=== PATIENT | male | born 1950 | race African-American/Black ===

== ENCOUNTER 2017-01-18 15:45 | Inpatient (IN) | payer MEDICAID ==
[~2017-01-18 15:45] MED LIST: ALDACTONE25 M1 PO; ASPIRIN EC81 MG PO; COREG25 M1 PO; DEMADEX20 M1 PO; LASIX40 MG PO; LIPITOR40 M1 PO; POTASSIUM CHLO20 ME3 PO; ULTRAM50 M1 PO; ZESTRIL10 M1 PO; ZESTRIL10 M3 PO
[2017-01-18] MEDS ORDERED: GAS RELIEF125 M5 PO (16:18)
[2017-01-18 16:27] LABS: BASO % 0.4 % (0-2); EOS % 1.3 % (0-7); EOSINOPHIL ABSOLUTE COUNT 0.1 tho/cmm (0.0-0.7); HCT-HEMATOCRIT 41.5 % (36.0-53.5); HGB-HEMOGLOBIN 14.1 gm/dl (13.5-17.0); IMMATURE GRANULOCYTES ABSOLUTE 0.01 tho/cmm (0-0.03); IMMATURE GRANULOCYTES PERCENT 0.2 % (0-0.3); LYMPH % 25.8 % (20-45); LYMPH ABSOLUTE COUNT 1.2 tho/cmm (0.8-4.5); MCH (MEAN CORPUSCULAR HGB) 29.8 pg (28.0-32.0); MCV (MEAN CELL VOLUME) 87.7 fl (82.0-96.0); MEAN PLATELET VOLUME 11.3 cmc (9.4-12.4); MONO % 11.5 % (0-12); MONOCYTE ABSOLUTE COUNT 0.6 tho/cmm (0.0-1.2); NEUTROPHIL ABSOLUTE COUNT 2.9 tho/cmm (1.6-8.0); NEUTROPHIL-AUTOMATED 2.9 tho/cmm (1.6-8.0); NEUTROPHILS % 60.8 % (40-80); PLATELET COUNT 159 tho/cmm (150-450); RED BLOOD COUNT 4.73 mil/cmm (4.40-5.70); RED CELL DISTRIBUTION WIDTH 14.1 % (12.4-16.4); WHITE BLOOD COUNT 4.8 tho/cmm (4.0-10.0)
[2017-01-18 16:55] LABS: ALB/GLOB RATIO 0.8 (0.8-2.0); ALBUMIN 3.5 g/dl (3.5-5.0); ALKALINE PHOSPHATASE 130 U/L (33-138); ALT/SGPT 36 U/L (12-78); ANION GAP 11 mmol/L (0-20); AST/SGOT 25 U/L (10-40); BILIRUBIN,TOTAL 0.5 mg/dl (0.0-1.5); BLOOD UREA NITROGEN 10 mg/dl (6-24); C-REACTIVE PROTEIN 3.2 mg/dl (0-0.9); CALCIUM 9.3 mg/dl (8.5-10.5); CARBON DIOXIDE-VENOUS 31 mmol/L (22-32); CHLORIDE 101 mmol/l (96-110); CREATININE 0.88 mg/dl (0.60-1.30); GLUCOSE 105 mg/dL (70-110); LIPASE 475 U/L (73-393); POTASSIUM 4.8 mmol/L (3.7-5.1); SODIUM 138 mmol/L (135-145); eGFR VALUE FOR BLACK >90 mL/Min
[2017-01-18 18:46] LABS: MAGNESIUM 1.8 mg/dl (1.3-2.6)
[2017-01-19 06:01] LABS: ANION GAP 12 mmol/L (0-20); BLOOD UREA NITROGEN 11 mg/dl (6-24); CALCIUM 9.2 mg/dl (8.5-10.5); CARBON DIOXIDE-VENOUS 30 mmol/L (22-32); CHLORIDE 100 mmol/l (96-110); CREATININE 0.91 mg/dl (0.60-1.30); GLUCOSE 97 mg/dL (70-110); SODIUM 138 mmol/L (135-145); eGFR VALUE FOR BLACK >90 mL/Min
[2017-01-19 06:04] LABS: POTASSIUM 3.8 mmol/L (3.7-5.1)
[2017-01-19 11:47] LABS: URINE BILIRUBIN NEGATIVE (NEG); URINE BLOOD NEGATIVE (NEG); URINE GLUCOSE (UA) NEGATIVE (NEG); URINE KETONE NEGATIVE (NEG); URINE LEUKOCYTE ESTERASE NEGATIVE (NEG); URINE NITRITE NEGATIVE (NEG); URINE PROTEIN NEGATIVE (NEG); URINE SPECIFIC GRAVITY 1.005 (1.003-1.030)
[2017-01-19 11:48] LABS: URINE APPEARANCE CLEAR; URINE COLOR PALE YELLOW
[2017-01-20 07:31] LABS: ALB/GLOB RATIO 0.8 (0.8-2.0); ALBUMIN 3.5 g/dl (3.5-5.0); ALKALINE PHOSPHATASE 125 U/L (33-138); ALT/SGPT 34 U/L (12-78); AMYLASE 47 U/L (20-90); ANION GAP 10 mmol/L (0-20); AST/SGOT 26 U/L (10-40); BILIRUBIN,TOTAL 0.5 mg/dl (0.0-1.5); BLOOD UREA NITROGEN 10 mg/dl (6-24); CALCIUM 8.9 mg/dl (8.5-10.5); CARBON DIOXIDE-VENOUS 33 mmol/L (22-32); CHLORIDE 99 mmol/l (96-110); CREATININE 0.88 mg/dl (0.60-1.30); GLUCOSE 105 mg/dL (70-110); LIPASE 388 U/L (73-393); POTASSIUM 3.7 mmol/L (3.7-5.1); SODIUM 138 mmol/L (135-145); eGFR VALUE FOR BLACK >90 mL/Min
[2017-01-20 07:45] LABS: BASO % 0.4 % (0-2); EOS % 0.7 % (0-7); HCT-HEMATOCRIT 41.2 % (36.0-53.5); IMMATURE GRANULOCYTES ABSOLUTE 0.01 tho/cmm (0-0.03); IMMATURE GRANULOCYTES PERCENT 0.2 % (0-0.3); LYMPH % 22.5 % (20-45); MCH (MEAN CORPUSCULAR HGB) 29.5 pg (28.0-32.0); MCV (MEAN CELL VOLUME) 86.7 fl (82.0-96.0); MEAN PLATELET VOLUME 11.9 cmc (9.4-12.4); MONO % 13.6 % (0-12); MONOCYTE ABSOLUTE COUNT 0.6 tho/cmm (0.0-1.2); NEUTROPHIL ABSOLUTE COUNT 2.8 tho/cmm (1.6-8.0); NEUTROPHIL-AUTOMATED 2.8 tho/cmm (1.6-8.0); NEUTROPHILS % 62.6 % (40-80); PLATELET COUNT 155 tho/cmm (150-450); RED BLOOD COUNT 4.75 mil/cmm (4.40-5.70); RED CELL DISTRIBUTION WIDTH 14.2 % (12.4-16.4); WHITE BLOOD COUNT 4.5 tho/cmm (4.0-10.0)
[2017-01-21 04:50] LABS: INR 1.2 INR (0.9-1.1); PROTHROMBIN TIME 14.6 SECONDS (9.0-13.6)
[2017-01-21 04:52] LABS: BASO % 0.1 % (0-2); EOS % 0.9 % (0-7); EOSINOPHIL ABSOLUTE COUNT 0.1 tho/cmm (0.0-0.7); HCT-HEMATOCRIT 42.5 % (36.0-53.5); HGB-HEMOGLOBIN 14.3 gm/dl (13.5-17.0); IMMATURE GRANULOCYTES ABSOLUTE 0.01 tho/cmm (0-0.03); IMMATURE GRANULOCYTES PERCENT 0.1 % (0-0.3); LYMPH % 16.1 % (20-45); LYMPH ABSOLUTE COUNT 1.1 tho/cmm (0.8-4.5); MCH (MEAN CORPUSCULAR HGB) 29.4 pg (28.0-32.0); MCHC MEAN CORPUSCULAR HGB CONC 33.6 % (32.0-36.0); MCV (MEAN CELL VOLUME) 87.3 fl (82.0-96.0); MEAN PLATELET VOLUME 12.2 cmc (9.4-12.4); MONO % 12.9 % (0-12); MONOCYTE ABSOLUTE COUNT 0.9 tho/cmm (0.0-1.2); NEUTROPHIL ABSOLUTE COUNT 4.8 tho/cmm (1.6-8.0); NEUTROPHIL-AUTOMATED 4.8 tho/cmm (1.6-8.0); NEUTROPHILS % 69.9 % (40-80); PLATELET COUNT 161 tho/cmm (150-450); RED BLOOD COUNT 4.87 mil/cmm (4.40-5.70); RED CELL DISTRIBUTION WIDTH 14.3 % (12.4-16.4)
[2017-01-21 05:11] LABS: WHITE BLOOD COUNT 6.8 tho/cmm (4.0-10.0)
[2017-01-21 05:26] LABS: ANION GAP 12 mmol/L (0-20); BLOOD UREA NITROGEN 11 mg/dl (6-24); CARBON DIOXIDE-VENOUS 28 mmol/L (22-32); CHLORIDE 104 mmol/l (96-110); CREATININE 0.96 mg/dl (0.60-1.30); GLUCOSE 111 mg/dL (70-110); POTASSIUM 4.6 mmol/L (3.7-5.1); SODIUM 139 mmol/L (135-145); eGFR VALUE FOR BLACK >90 mL/Min
[2017-01-21 05:34] LABS: MAGNESIUM 1.8 mg/dl (1.3-2.6)
[2017-01-22 03:50] LABS: ANION GAP 10 mmol/L (0-20); BLOOD UREA NITROGEN 16 mg/dl (6-24); CALCIUM 9.1 mg/dl (8.5-10.5); CARBON DIOXIDE-VENOUS 31 mmol/L (22-32); CHLORIDE 99 mmol/l (96-110); CREATININE 0.98 mg/dl (0.60-1.30); GLUCOSE 124 mg/dL (70-110); POTASSIUM 4.3 mmol/L (3.7-5.1); SODIUM 136 mmol/L (135-145); eGFR VALUE FOR BLACK >90 mL/Min
[2017-01-23 06:01] LABS: ANION GAP 11 mmol/L (0-20); BLOOD UREA NITROGEN 14 mg/dl (6-24); CALCIUM 8.9 mg/dl (8.5-10.5); CARBON DIOXIDE-VENOUS 29 mmol/L (22-32); CHLORIDE 96 mmol/l (96-110); CREATININE 0.82 mg/dl (0.60-1.30); GLUCOSE 116 mg/dL (70-110); SODIUM 132 mmol/L (135-145); eGFR VALUE FOR BLACK >90 mL/Min
[2017-01-23 06:06] LABS: POTASSIUM 4.3 mmol/L (3.7-5.1)
[2017-01-23] MEDS ORDERED: FLOMAX0.4 M1 PO (11:08)
[2017-01-23] MEDS ORDERED: ULTRAM50 M1 PO (11:09)
== END 2017-01-23 12:55 | DRG 435 ==
LOC: EDMED 15:45 → EMR2 16:42 → PCUA 21:50
PROVIDERS: Emergency Medicine; Internal Medicine Interventional Cardiology; Internal Medicine Medical Oncology; Physician Assistant; Radiology Diagnostic Radiology; Registered Nurse; ADMIT Internal Medicine Cardiovascular Disease
PROC: 02HV33Z Insertion of Infusion Device into Superior Vena Cava, Percutaneous Approach (ICD-10-PCS; principal; 2017-01-20)
PROC: 0FB23ZX Excision of Left Lobe Liver, Percutaneous Approach, Diagnostic (ICD-10-PCS; 2017-01-21)
DX: C25.9 Malignant neoplasm of pancreas, unspecified (principal); I50.23 Acute on chronic systolic (congestive) heart failure; J90 Pleural effusion, not elsewhere classified; I11.0 Hypertensive heart disease with heart failure; C78.7 Secondary malignant neoplasm of liver and intrahepatic bile duct; Z95.1 Presence of aortocoronary bypass graft; E78.5 Hyperlipidemia, unspecified; K59.00 Constipation, unspecified; I25.10 Atherosclerotic heart disease of native coronary artery without angina pectoris; I25.5 Ischemic cardiomyopathy; Z87.891 Personal history of nicotine dependence; R31.9 Hematuria, unspecified
CPT/HCPCS: C1751; G8978-GO-CH; G8978-GP-CH; G8979-GO-CH; G8979-GP-CH; G8980-GO-CH; G8981-GP-CH; J1250; J1650; J1940; J2270; J3010; J3475; J7040; J7050; Q9967

== ENCOUNTER 2017-03-20 16:24 | Inpatient (IN) | payer MEDICAID ==
[~2017-03-20 16:24] MED LIST changes: +FLOMAX0.4 M1 PO; +GAS RELIEF125 M5 PO
[2017-03-20] MEDS ORDERED: ZYLOPRIM100 M1 PO (16:36)
[2017-03-20] MEDS ORDERED: OXYCONTIN30 M1 PO (16:36)
[2017-03-20] MEDS ORDERED: CLARITIN10 M6 PO (16:38)
[2017-03-20 17:25] LABS: BASO % 0.2 % (0-2); EOS % 2.3 % (0-7); EOSINOPHIL ABSOLUTE COUNT 0.1 tho/cmm (0.0-0.7); HCT-HEMATOCRIT 27.7 % (36.0-53.5); HGB-HEMOGLOBIN 9.4 gm/dl (13.5-17.0); IMMATURE GRANULOCYTES ABSOLUTE 0.02 tho/cmm (0-0.03); IMMATURE GRANULOCYTES PERCENT 0.5 % (0-0.3); LYMPH ABSOLUTE COUNT 0.6 tho/cmm (0.8-4.5); MCH (MEAN CORPUSCULAR HGB) 29.7 pg (28.0-32.0); MCHC MEAN CORPUSCULAR HGB CONC 33.9 % (32.0-36.0); MCV (MEAN CELL VOLUME) 87.7 fl (82.0-96.0); MEAN PLATELET VOLUME 11.3 cmc (9.4-12.4); MONO % 2.7 % (0-12); MONOCYTE ABSOLUTE COUNT 0.1 tho/cmm (0.0-1.2); NEUTROPHIL ABSOLUTE COUNT 3.6 tho/cmm (1.6-8.0); NEUTROPHIL-AUTOMATED 3.6 tho/cmm (1.6-8.0); NEUTROPHILS % 81.3 % (40-80); PLATELET COUNT 233 tho/cmm (150-450); RED BLOOD COUNT 3.16 mil/cmm (4.40-5.70); RED CELL DISTRIBUTION WIDTH 15.6 % (12.4-16.4); WHITE BLOOD COUNT 4.4 tho/cmm (4.0-10.0)
[2017-03-20 17:41] LABS: ANION GAP 11 mmol/L (0-20); BLOOD UREA NITROGEN 34 mg/dl (6-24); CALCIUM 8.9 mg/dl (8.5-10.5); CARBON DIOXIDE-VENOUS 34 mmol/L (22-32); CHLORIDE 94 mmol/l (96-110); CREATININE 1.68 mg/dl (0.60-1.30); GLUCOSE 124 mg/dL (70-110); LIPASE 148 U/L (73-393); POTASSIUM 4.3 mmol/L (3.7-5.1); SODIUM 135 mmol/L (135-145); eGFR VALUE FOR BLACK 48 mL/Min
[2017-03-20 18:46] LABS: ALB/GLOB RATIO 0.7 (0.8-2.0); ALBUMIN 2.7 g/dl (3.5-5.0); BILIRUBIN,DIRECT 0.2 mg/dl (0.0-0.3); BILIRUBIN,INDIRECT 0.3 mg/dL (0.0-1.0); BILIRUBIN,TOTAL 0.5 mg/dl (0.0-1.5)
[2017-03-20 19:59] LABS: URINE BILIRUBIN NEGATIVE (NEG); URINE BLOOD NEGATIVE (NEG); URINE GLUCOSE (UA) NEGATIVE (NEG); URINE KETONE NEGATIVE (NEG); URINE LEUKOCYTE ESTERASE NEGATIVE (NEG); URINE NITRITE NEGATIVE (NEG); URINE PROTEIN SMALL (NEG)
[2017-03-20 20:00] LABS: URINE APPEARANCE HAZY; URINE COLOR DARK YELLOW
[2017-03-20 20:05] LABS: URINE EPITHELIAL CELLS RARE /[HPF] (0-10); URINE RBC 0 /[HPF] (0-5); URINE WBC 0 /[HPF] (0-5)
[2017-03-21 05:50] LABS: BASO % 0.3 % (0-2); EOSINOPHIL ABSOLUTE COUNT 0.1 tho/cmm (0.0-0.7); HCT-HEMATOCRIT 24.6 % (36.0-53.5); HGB-HEMOGLOBIN 8.3 gm/dl (13.5-17.0); IMMATURE GRANULOCYTES ABSOLUTE 0.03 tho/cmm (0-0.03); IMMATURE GRANULOCYTES PERCENT 0.9 % (0-0.3); LYMPH % 15.7 % (20-45); LYMPH ABSOLUTE COUNT 0.5 tho/cmm (0.8-4.5); MCH (MEAN CORPUSCULAR HGB) 29.5 pg (28.0-32.0); MCHC MEAN CORPUSCULAR HGB CONC 33.7 % (32.0-36.0); MCV (MEAN CELL VOLUME) 87.5 fl (82.0-96.0); MEAN PLATELET VOLUME 11.5 cmc (9.4-12.4); MONO % 5.6 % (0-12); MONOCYTE ABSOLUTE COUNT 0.2 tho/cmm (0.0-1.2); NEUTROPHIL ABSOLUTE COUNT 2.4 tho/cmm (1.6-8.0); NEUTROPHIL-AUTOMATED 2.4 tho/cmm (1.6-8.0); NEUTROPHILS % 73.5 % (40-80); PLATELET COUNT 250 tho/cmm (150-450); RED BLOOD COUNT 2.81 mil/cmm (4.40-5.70); RED CELL DISTRIBUTION WIDTH 15.5 % (12.4-16.4); WHITE BLOOD COUNT 3.2 tho/cmm (4.0-10.0)
[2017-03-21 06:04] LABS: ALB/GLOB RATIO 0.6 (0.8-2.0); ALBUMIN 2.1 g/dl (3.5-5.0); ALT/SGPT 62 U/L (12-78); ANION GAP 10 mmol/L (0-20); BLOOD UREA NITROGEN 22 mg/dl (6-24); CALCIUM 7.9 mg/dl (8.5-10.5); CARBON DIOXIDE-VENOUS 31 mmol/L (22-32); CHLORIDE 99 mmol/l (96-110); CREATININE 0.96 mg/dl (0.60-1.30); GLUCOSE 81 mg/dL (70-110); POTASSIUM 3.7 mmol/L (3.7-5.1); SODIUM 136 mmol/L (135-145); eGFR VALUE FOR BLACK >90 mL/Min
[2017-03-21 06:07] LABS: ALKALINE PHOSPHATASE 513 U/L (33-138); AST/SGOT 92 U/L (10-40); BILIRUBIN,TOTAL 1.7 mg/dl (0.0-1.5)
[2017-03-21] MEDS ORDERED: OXYCODONE HCL10 M2 PO (13:08)
[2017-03-22 05:00] LABS: BASO % 0.6 % (0-2); EOS % 3.8 % (0-7); EOSINOPHIL ABSOLUTE COUNT 0.1 tho/cmm (0.0-0.7); HCT-HEMATOCRIT 26.1 % (36.0-53.5); HGB-HEMOGLOBIN 8.7 gm/dl (13.5-17.0); IMMATURE GRANULOCYTES ABSOLUTE 0.02 tho/cmm (0-0.03); IMMATURE GRANULOCYTES PERCENT 0.6 % (0-0.3); LYMPH % 13.1 % (20-45); LYMPH ABSOLUTE COUNT 0.5 tho/cmm (0.8-4.5); MCH (MEAN CORPUSCULAR HGB) 29.5 pg (28.0-32.0); MCHC MEAN CORPUSCULAR HGB CONC 33.3 % (32.0-36.0); MCV (MEAN CELL VOLUME) 88.5 fl (82.0-96.0); MONO % 6.4 % (0-12); MONOCYTE ABSOLUTE COUNT 0.2 tho/cmm (0.0-1.2); NEUTROPHIL ABSOLUTE COUNT 2.6 tho/cmm (1.6-8.0); NEUTROPHIL-AUTOMATED 2.6 tho/cmm (1.6-8.0); NEUTROPHILS % 75.5 % (40-80); PLATELET COUNT 355 tho/cmm (150-450); RED BLOOD COUNT 2.95 mil/cmm (4.40-5.70); RED CELL DISTRIBUTION WIDTH 15.8 % (12.4-16.4); WHITE BLOOD COUNT 3.4 tho/cmm (4.0-10.0)
[2017-03-22 05:12] LABS: ALB/GLOB RATIO 0.6 (0.8-2.0); ALBUMIN 2.4 g/dl (3.5-5.0); ANION GAP 11 mmol/L (0-20); AST/SGOT 131 U/L (10-40); BILIRUBIN,TOTAL 1.9 mg/dl (0.0-1.5); BLOOD UREA NITROGEN 14 mg/dl (6-24); CALCIUM 8.4 mg/dl (8.5-10.5); CARBON DIOXIDE-VENOUS 30 mmol/L (22-32); CHLORIDE 97 mmol/l (96-110); CREATININE 0.86 mg/dl (0.60-1.30); GLUCOSE 91 mg/dL (70-110); POTASSIUM 3.6 mmol/L (3.7-5.1); SODIUM 134 mmol/L (135-145); eGFR VALUE FOR BLACK >90 mL/Min
[2017-03-22 05:18] LABS: ALKALINE PHOSPHATASE 662 U/L (33-138); ALT/SGPT 106 U/L (12-78)
[2017-03-22 14:44] LABS: BODY FLUID APPEARANCE CLOUDY (CLEAR); BODY FLUID COLOR YELLOW (COLORLESS); BODY FLUID RBC COUNT 4000 cmm (0); BODY FLUID VOLUME 1000 ml; BODY FLUID WBC COUNT 1026 cmm
[2017-03-22 18:03] LABS: FERRITIN 1102 ng/ml (22-388)
[2017-03-22 18:05] LABS: IRON BINDING CAPACITY 173 ug/dl (250-450)
[2017-03-22 18:08] LABS: IRON 26 ug/dl (49-181)
[2017-03-23 05:18] LABS: BASO % 0.2 % (0-2); EOS % 0.8 % (0-7); HGB-HEMOGLOBIN 8.9 gm/dl (13.5-17.0); IMMATURE GRANULOCYTES ABSOLUTE 0.02 tho/cmm (0-0.03); IMMATURE GRANULOCYTES PERCENT 0.4 % (0-0.3); LYMPH % 10.7 % (20-45); LYMPH ABSOLUTE COUNT 0.5 tho/cmm (0.8-4.5); MCHC MEAN CORPUSCULAR HGB CONC 34.2 % (32.0-36.0); MCV (MEAN CELL VOLUME) 87.5 fl (82.0-96.0); MEAN PLATELET VOLUME 11.5 cmc (9.4-12.4); MONO % 7.6 % (0-12); MONOCYTE ABSOLUTE COUNT 0.4 tho/cmm (0.0-1.2); NEUTROPHIL ABSOLUTE COUNT 3.8 tho/cmm (1.6-8.0); NEUTROPHIL-AUTOMATED 3.8 tho/cmm (1.6-8.0); NEUTROPHILS % 80.3 % (40-80); PLATELET COUNT 403 tho/cmm (150-450); RED BLOOD COUNT 2.97 mil/cmm (4.40-5.70); RED CELL DISTRIBUTION WIDTH 15.8 % (12.4-16.4); WHITE BLOOD COUNT 4.8 tho/cmm (4.0-10.0)
[2017-03-23 06:06] LABS: CHLORIDE 100 mmol/l (96-110); POTASSIUM 4.1 mmol/L (3.7-5.1); SODIUM 137 mmol/L (135-145)
[2017-03-23 06:23] LABS: ALB/GLOB RATIO 0.7 (0.8-2.0); ALBUMIN 2.5 g/dl (3.5-5.0); ALT/SGPT 102 U/L (12-78); ANION GAP 14 mmol/L (0-20); AST/SGOT 83 U/L (10-40); BLOOD UREA NITROGEN 9 mg/dl (6-24); CALCIUM 8.5 mg/dl (8.5-10.5); CARBON DIOXIDE-VENOUS 27 mmol/L (22-32); CREATININE 0.84 mg/dl (0.60-1.30); GLUCOSE 82 mg/dL (70-110); eGFR VALUE FOR BLACK >90 mL/Min
[2017-03-23 06:26] LABS: ALKALINE PHOSPHATASE 589 U/L (33-138); BILIRUBIN,TOTAL 0.7 mg/dl (0.0-1.5)
[2017-03-23 11:47] LABS: FLUID ALBUMIN 2.1 g/dl
[2017-03-23 12:52] LABS: BODY FLUID LYMPHOCYTES 10 %; BODY FLUID MACROPHAGES 85 %; BODY FLUID MESOTHELIAL CELLS 1 %; BODY FLUID NEUTROPHILS 4 %
[2017-03-23] MEDS ORDERED: XARELTO15 M1 PO (13:30)
[2017-03-23] MEDS ORDERED: MIRALAX17 G2 PO (13:33)
[2017-03-23] MEDS ORDERED: SENOKOT-S TABL1 EACH PO (13:34)
[2017-03-23] MEDS ORDERED: LEVAQUIN500 M1 PO (13:38)
[2017-03-23] MEDS ORDERED: ALDACTONE100 M1 PO (13:39)
[2017-03-23] MEDS ORDERED: LASIX20 M1 PO (13:40)
== END 2017-03-23 14:30 | DRG 314 ==
LOC: EDMED 16:24 → PCUA 23:27
PROVIDERS: Emergency Medicine; Family Medicine; Internal Medicine Gastroenterology; Internal Medicine Medical Oncology; ADMIT Hospitalist
PROC: 0W9G3ZZ Drainage of Peritoneal Cavity, Percutaneous Approach (ICD-10-PCS; 2017-03-22)
PROC: 0DJ08ZZ Inspection of Upper Intestinal Tract, Via Natural or Artificial Opening Endoscopic (ICD-10-PCS; principal; 2017-03-23)
DX: I95.9 Hypotension, unspecified (principal); I26.99 Other pulmonary embolism without acute cor pulmonale; N17.9 Acute kidney failure, unspecified; K65.2 Spontaneous bacterial peritonitis; C25.9 Malignant neoplasm of pancreas, unspecified; I82.403 Acute embolism and thrombosis of unspecified deep veins of lower extremity, bilateral; C78.7 Secondary malignant neoplasm of liver and intrahepatic bile duct; I11.0 Hypertensive heart disease with heart failure; R18.8 Other ascites; K76.6 Portal hypertension; I50.42 Chronic combined systolic (congestive) and diastolic (congestive) heart failure; K59.00 Constipation, unspecified; K74.60 Unspecified cirrhosis of liver; D64.9 Anemia, unspecified; I25.10 Atherosclerotic heart disease of native coronary artery without angina pectoris; R33.9 Retention of urine, unspecified; E78.5 Hyperlipidemia, unspecified; I25.5 Ischemic cardiomyopathy; K31.89 Other diseases of stomach and duodenum; Z88.8 Allergy status to other drugs, medicaments and biological substances; E86.0 Dehydration; Z95.1 Presence of aortocoronary bypass graft; I08.1 Rheumatic disorders of both mitral and tricuspid valves; F17.210 Nicotine dependence, cigarettes, uncomplicated; Z79.82 Long term (current) use of aspirin; I48.91 Unspecified atrial fibrillation; R11.2 Nausea with vomiting, unspecified
CPT/HCPCS: A9540; A9558; C1729; C9113; J1650; J2270; J7030; P9045

== ENCOUNTER 2017-03-27 19:12 | Inpatient (IN) | payer MEDICAID ==
[~2017-03-27 19:12] MED LIST changes: +ALDACTONE100 M1 PO; +CLARITIN10 M6 PO; +LASIX20 M1 PO; +LEVAQUIN500 M1 PO; +MIRALAX17 G2 PO; +OXYCODONE HCL10 M2 PO; +OXYCONTIN30 M1 PO; +SENOKOT-S TABL1 EACH PO; +XARELTO15 M1 PO; +ZYLOPRIM100 M1 PO
[2017-03-27 20:54] LABS: BASO % 0.4 % (0-2); EOS % 1.5 % (0-7); EOSINOPHIL ABSOLUTE COUNT 0.1 tho/cmm (0.0-0.7); HCT-HEMATOCRIT 27.3 % (36.0-53.5); HGB-HEMOGLOBIN 9.2 gm/dl (13.5-17.0); IMMATURE GRANULOCYTES ABSOLUTE 0.04 tho/cmm (0-0.03); IMMATURE GRANULOCYTES PERCENT 0.8 % (0-0.3); LYMPH % 18.2 % (20-45); MCH (MEAN CORPUSCULAR HGB) 29.5 pg (28.0-32.0); MCHC MEAN CORPUSCULAR HGB CONC 33.7 % (32.0-36.0); MCV (MEAN CELL VOLUME) 87.5 fl (82.0-96.0); MEAN PLATELET VOLUME 10.3 cmc (9.4-12.4); MONO % 15.4 % (0-12); MONOCYTE ABSOLUTE COUNT 0.8 tho/cmm (0.0-1.2); NEUTROPHIL ABSOLUTE COUNT 3.3 tho/cmm (1.6-8.0); NEUTROPHIL-AUTOMATED 3.3 tho/cmm (1.6-8.0); NEUTROPHILS % 63.7 % (40-80); PLATELET COUNT 408 tho/cmm (150-450); RED BLOOD COUNT 3.12 mil/cmm (4.40-5.70); RED CELL DISTRIBUTION WIDTH 16.4 % (12.4-16.4); WHITE BLOOD COUNT 5.2 tho/cmm (4.0-10.0)
[2017-03-27 21:09] LABS: ALB/GLOB RATIO 0.6 (0.8-2.0); ALBUMIN 2.3 g/dl (3.5-5.0); ALKALINE PHOSPHATASE 348 U/L (33-138); ALT/SGPT 40 U/L (12-78); ANION GAP 12 mmol/L (0-20); AST/SGOT 26 U/L (10-40); BILIRUBIN,TOTAL 0.4 mg/dl (0.0-1.5); BLOOD UREA NITROGEN 22 mg/dl (6-24); CALCIUM 8.6 mg/dl (8.5-10.5); CARBON DIOXIDE-VENOUS 28 mmol/L (22-32); CHLORIDE 99 mmol/l (96-110); CREATININE 1.49 mg/dl (0.60-1.30); GLUCOSE 96 mg/dL (70-110); POTASSIUM 4.7 mmol/L (3.7-5.1); SODIUM 134 mmol/L (135-145); eGFR VALUE FOR BLACK 55 mL/Min
[2017-03-28 06:43] LABS: ANION GAP 10 mmol/L (0-20); BLOOD UREA NITROGEN 23 mg/dl (6-24); CALCIUM 8.5 mg/dl (8.5-10.5); CARBON DIOXIDE-VENOUS 30 mmol/L (22-32); CHLORIDE 99 mmol/l (96-110); CREATININE 1.53 mg/dl (0.60-1.30); GLUCOSE 128 mg/dL (70-110); POTASSIUM 4.4 mmol/L (3.7-5.1); SODIUM 135 mmol/L (135-145); eGFR VALUE FOR BLACK 54 mL/Min
--- NOTE | 2017-03-28 14:53 | NUR ---
Pt signed DNR/DNI form, copies to pt and on chart, faxed copy to Dr Goff's ofc and hospice. Pt requested [facility] hosp[facility], spoke with YENY Patricio hospice volunteer. Dr Goff will be the hospice doctor. JERMAIN Batista will arrange transport home. Support to pt, he is open about end of life issues, pt initiates conversation about that topic.
== END 2017-03-28 15:25 | disposition hospice, home (50) | DRG 433 ==
LOC: EDMED 19:12 → EMR2 22:16 → 5WF 22:22
PROVIDERS: Emergency Medicine; Internal Medicine; ADMIT Hospitalist
DX: K74.69 Other cirrhosis of liver (principal); C25.9 Malignant neoplasm of pancreas, unspecified; N17.9 Acute kidney failure, unspecified; E46 Unspecified protein-calorie malnutrition; C78.7 Secondary malignant neoplasm of liver and intrahepatic bile duct; I11.0 Hypertensive heart disease with heart failure; I50.42 Chronic combined systolic (congestive) and diastolic (congestive) heart failure; I95.9 Hypotension, unspecified; R18.8 Other ascites; I87.2 Venous insufficiency (chronic) (peripheral); E78.5 Hyperlipidemia, unspecified; Z66 Do not resuscitate; Z51.5 Encounter for palliative care; I25.10 Atherosclerotic heart disease of native coronary artery without angina pectoris; Z95.1 Presence of aortocoronary bypass graft; Z95.0 Presence of cardiac pacemaker; Z79.82 Long term (current) use of aspirin; I25.5 Ischemic cardiomyopathy; Z86.711 Personal history of pulmonary embolism; Z86.718 Personal history of other venous thrombosis and embolism; Z79.01 Long term (current) use of anticoagulants; Z68.25 Body mass index [BMI] 25.0-25.9, adult; B18.2 Chronic viral hepatitis C; G89.29 Other chronic pain; Z79.891 Long term (current) use of opiate analgesic; K59.00 Constipation, unspecified; Z88.6 Allergy status to analgesic agent; F17.210 Nicotine dependence, cigarettes, uncomplicated
CPT/HCPCS: J1940; J7050; P9047

== ENCOUNTER 2017-04-21 22:11 | Observation (INO) | payer MEDICAID ==
[2017-04-21 22:39] LABS: BASO % 0.6 % (0-2); EOS % 0.6 % (0-7); HGB-HEMOGLOBIN 9.9 gm/dl (13.5-17.0); LYMPH % 14.4 % (20-45); MCH (MEAN CORPUSCULAR HGB) 30.1 pg (28.0-32.0); MCHC MEAN CORPUSCULAR HGB CONC 34.1 % (32.0-36.0); MCV (MEAN CELL VOLUME) 88.1 fl (82.0-96.0); MEAN PLATELET VOLUME 11.1 cmc (9.4-12.4); MONO % 7.1 % (0-12); MONOCYTE ABSOLUTE COUNT 0.5 tho/cmm (0.0-1.2); NEUTROPHIL ABSOLUTE COUNT 5.1 tho/cmm (1.6-8.0); NEUTROPHIL-AUTOMATED 5.1 tho/cmm (1.6-8.0); NEUTROPHILS % 77.3 % (40-80); PLATELET COUNT 207 tho/cmm (150-450); RED BLOOD COUNT 3.29 mil/cmm (4.40-5.70); RED CELL DISTRIBUTION WIDTH 17.7 % (12.4-16.4); WHITE BLOOD COUNT 6.7 tho/cmm (4.0-10.0)
[2017-04-21 22:46] LABS: INR 1.2 INR (0.9-1.1); PROTHROMBIN TIME 13.6 SECONDS (9.0-13.6)
[2017-04-21 23:04] LABS: ALB/GLOB RATIO 0.6 (0.8-2.0); ALBUMIN 2.6 g/dl (3.5-5.0); ALCOHOL (ETOH) <10 mg/dl (<10); ALKALINE PHOSPHATASE 163 U/L (33-138); ALT/SGPT 31 U/L (12-78); ANION GAP 22 mmol/L (0-20); AST/SGOT 50 U/L (10-40); BILIRUBIN,TOTAL 0.6 mg/dl (0.0-1.5); BLOOD UREA NITROGEN 114 mg/dl (6-24); CALCIUM 9.4 mg/dl (8.5-10.5); CARBON DIOXIDE-VENOUS 20 mmol/L (22-32); CHLORIDE 104 mmol/l (96-110); CREATININE 8.62 mg/dl (0.60-1.30); GLUCOSE 94 mg/dL (70-110); LIPASE 462 U/L (73-393); SODIUM 139 mmol/L (135-145); eGFR VALUE FOR BLACK 7 mL/Min
[2017-04-21 23:07] LABS: POTASSIUM 6.7 mmol/L (3.7-5.1); PROCALCITONIN 3.16 ng/ml (0.05-0.09)
== END 2017-04-22 12:55 | disposition hospice, home (50) ==
LOC: EDMED 22:11 → EMR2 04-22 00:34 → CAR1 04-22 00:57
PROVIDERS: Emergency Medicine; ADMIT Internal Medicine
DX: I95.9 Hypotension, unspecified (principal); N17.9 Acute kidney failure, unspecified; E87.5 Hyperkalemia; C25.9 Malignant neoplasm of pancreas, unspecified; C78.7 Secondary malignant neoplasm of liver and intrahepatic bile duct; I11.0 Hypertensive heart disease with heart failure; I50.9 Heart failure, unspecified; Z66 Do not resuscitate; J90 Pleural effusion, not elsewhere classified; I25.10 Atherosclerotic heart disease of native coronary artery without angina pectoris; E78.5 Hyperlipidemia, unspecified; K74.60 Unspecified cirrhosis of liver; F17.210 Nicotine dependence, cigarettes, uncomplicated; Z51.5 Encounter for palliative care; Z79.01 Long term (current) use of anticoagulants; Z79.82 Long term (current) use of aspirin; Z79.899 Other long term (current) drug therapy; Z88.6 Allergy status to analgesic agent; Z86.718 Personal history of other venous thrombosis and embolism; Z86.711 Personal history of pulmonary embolism; Z95.1 Presence of aortocoronary bypass graft; Z95.810 Presence of automatic (implantable) cardiac defibrillator; W18.30XA Fall on same level, unspecified, initial encounter
CPT/HCPCS: G0378; G0480; G8978-GP-CJ; G8979-GP-CJ; G8980-GP-CJ; J1815; J2405; J2543; J7030